=== PATIENT | male | born 1945 | race Caucasian/White ===

== ENCOUNTER → 2018-08-19 | Outpatient (CLI) | payer MEDICARE, OTHER | LOC: BMCIMAGING 11:30 | DX: E34.9 Endocrine disorder, unspecified (principal); Z79.891 Long term (current) use of opiate analgesic; M81.0 Age-related osteoporosis without current pathological fracture ==

== ENCOUNTER 2019-03-15 07:34 | Inpatient (IN) | payer OTHER | END 2019-03-22 13:15 | LOC: FCATH 07:34 → F2N 03-17 08:14 → F2W 03-18 11:49 → F2N 03-17 11:45 → F2W 16:37 ==

== ENCOUNTER → 2019-03-29 | Outpatient (CLI) | payer OTHER | LOC: FIMAGING 10:49 ==